=== PATIENT | male | born 1965 | race Caucasian/White ===

== ENCOUNTER → 2019-04-06 09:58 | Outpatient (CLI) | payer OTHER, SELFPAY ==
[2019-04-06 11:36] LABS: Alanine Aminotransferase 26 IU/L (<50); Albumin 4.5 g/dL (3.5-5.0); Albumin Globulin Ratio 1.8 (1.0-2.8); Alkaline Phosphatase 51 U/L (38-126); Aspartate Aminotransferase 31 IU/L (17-59); BUN Creatinine Ratio 21.1 (6-22); Bilirubin Total 0.9 mg/dL (0.2-1.3); Blood Urea Nitrogen 19 mg/dL (9-20); Calcium 9.5 mg/dL (8.4-10.2); Carbon Dioxide 30 mmol/L (22-32); Chloride 105 mmol/L (98-107); Cholesterol 151 mg/dL (140-199); Estimated Glomerular Filt Rate > 60.0 mL/min (>60); Globulin 2.5 g/dL (1.7-4.1); Glucose 96 mg/dL (70-100); HDL Cholesterol 27 mg/dL (40-60); HEMOLYSIS < 15 (0-50); LDL Cholesterol Calculated 96 mg/dL (<100); Potassium 4.4 mmol/L (3.4-5.1); Sodium 142 mmol/L (137-145); Triglycerides 142 mg/dL (35-150)
[2019-04-06 12:05] LABS: Prostate Specific Antigen Scrn 3.24 ng/mL (0.1-4.0)
== END ==
PROVIDERS: PCP Family Medicine; Visit Provider Family Medicine
DX: Z76.89 Persons encountering health services in other specified circumstances (principal)
CPT/HCPCS: 36415; 80053; 80061; 83036; G0103

== ENCOUNTER → 2019-06-08 06:48 | Outpatient (CLI) | payer OTHER, SELFPAY ==
--- NOTE | 2019-06-08 06:49 | DI.ECHO.S_ITS ---
[place] +---------+ [facility] +---------+ : : [address] : : : : [id number] : : : : Phone: [phone]+ Echocardiogram Report + + :Name: AWAIS LEE Study Date: 06/08/2019 Height: 74 in : :[facility] Exam Location: [facility] Weight: 212 lb : : Gender: Male BSA: 2.2 m2 : :: 1965 Age: 53 yrs BP: 118/80 mmHg: :Reason For Study: Mitral Valve- Prolapse/ JIMENES : : Performed By: Page : :Referring: ISMAEL CORNELL : + + Interpretation Summary The left ventricle is normal in size, wall thickness, and systolic function without any focal wall motion abnormalities with the ejection fraction visually estimated to be 55-60%. Diastolic parameters suggest probable normal left ventricular diastolic function and normal filling pressures. The right ventricle is borderline dilated but systolic function is normal. Pulmonary artery pressures cannot be estimated because of the lack of a measurable TR jet velocity but the IVC suggests a CVP of around 3 mmHg. The left atrium is severely dilated and the right atrium is moderately dilated. There is mild aortic valve sclerosis with mild aortic regurgitation but no aortic valve stenosis. There is no other significant valvular heart disease. Specifically, there is no evidence of mitral valve prolapse. Procedure: A two-dimensional transthoracic echocardiogram with color flow and Doppler was performed. The study quality was technically adequate. There is no prior echocardiogram noted for this patient. The patient was in normal sinus rhythm during the exam. Left Ventricle: The left ventricle is normal in size, wall thickness, and systolic function without any focal wall motion abnormalities. The ejection fraction is estimated to be 55-60%. Diastolic parameters suggest probable normal left ventricular diastolic function and normal filling pressures. Right Ventricle: The right ventricle is borderline dilated. The right ventricular systolic function is normal. Atria: The left atrium is severely dilated. The right atrium is moderately dilated. There is no Doppler evidence for an interatrial shunt. Mitral Valve: The mitral valve is normal in structure and function. There is no evidence of mitral valve prolapse. There is trace mitral regurgitation. Aortic Valve: The aortic valve is trileaflet. There is mild aortic valve sclerosis. The aortic valve opens well. There is no aortic valve stenosis. There is mild aortic regurgitation. Tricuspid Valve: The tricuspid valve is normal in structure and function. There is a trace or physiologic amount of tricuspid regurgitation. Pulmonary artery pressures cannot be estimated because of the lack of a measurable TR jet velocity but the IVC suggests a CVP of around 3 mmHg. Pulmonic Valve: The pulmonic valve is not well visualized. There is no other significant valvular heart disease. Great Vessels: The aortic root is normal size. The ascending aorta could not be visualized. The pulmonary is not well visualized. The IVC is of normal diameter and collapses greater than 50% with a sniff. This suggests a low right atrial pressure of 3 mm Hg. Pericardium/ Pleura There is no pericardial effusion. There is no pleural effusion. MMode/2D Measurements & Calculations LVIDd: 4.8 cm LVOT diam: 2.4 cm LVIDs: 3.9 cm Ao root diam: 3.3 cm FS: 19.9 % IVSd: 0.78 cm LVPWd: 0.82 cm LV harrison. diameter/BSA (cm/m^2): 2.2 LV sys. diameter/BSA (cm/m^2): 1.7 LA A2 area: 27.4 cm2 RA long axis: 5.6 cm LA A4 area: 26.8 cm2 RA area: 24.6 cm2 LA length (vol): 5.9 cm RA vol: 91.8 ml LA vol: 105.9 ml RA : 41.2 ml/m2 LA vol index: 47.5 ml/m2 IVC diam: 2.0 cm RVD1 (basal): 5.2 cm RVD2 (mid): 4.4 cm TAPSE: 2.6 cm Doppler Measurements & Calculations Ao V2 max: 127.5 cm/sec LVOT Max Daniel: 80.5 cm/sec Ao V2 mean: 95.2 cm/sec LV V1 max P.6 mmHg Ao max P.5 mmHg LV V1 VTI: 18.4 cm Ao mean P.9 mmHg ALVERTO(I,D): 2.9 cm2 Ao V2 VTI: 28.0 cm ALVERTO(V,D): 2.8 cm2 sev ratio: 0.66 ALVERTO indexed to BSA (cm^2/m^2): 1.3 AI P1/2t: 660.8 msec AI dec slope: 179.1 cm/sec2 MV E max daniel: 54.3 cm/sec PA V2 max: 80.0 cm/sec MV A max daniel: 56.2 cm/sec PA V2 mean: 59.6 cm/sec MV E/A: 0.97 PA mean P.5 mmHg Med Peak E' Daniel: 10.0 cm/sec PA Accel Time: 0.14 sec E/E' med: 5.4 Lat Peak E' Daniel: 14.4 cm/sec E/E' lat: 3.8 E/e' average: 4.6 MV dec time: 0.23 sec MV P1/2t: 71.2 msec MV P1/2t max daniel: 55.8 cm/sec SV(LVOT): 80.2 ml MVA(P1/2t): 3.1 cm2 Reading Physician:JAIRO
== END ==
PROVIDERS: PCP Family Medicine; Referring Provider Family Medicine; Visit Provider Family Medicine
DX: I35.1 Nonrheumatic aortic (valve) insufficiency (principal); R06.09 Other forms of dyspnea
CPT/HCPCS: 93306

== ENCOUNTER → 2019-08-13 16:34 | Outpatient (CLI) | payer OTHER, SELFPAY ==
[2019-08-14 17:39] LABS: SARS CoV19 IgG Negative (Negative)
== END ==
PROVIDERS: PCP Family Medicine; Referring Provider Registered Nurse; Visit Provider Registered Nurse
DX: Z11.9 Encounter for screening for infectious and parasitic diseases, unspecified (principal)
CPT/HCPCS: 36415; 86769

== ENCOUNTER → 2019-08-15 13:00 | Outpatient (CLI) | payer OTHER, SELFPAY ==
--- NOTE | 2019-08-15 13:02 | DI.RAD.S_ITS ---
PROCEDURE: XR CHEST 2V INDICATIONS: persistent cough TECHNIQUE: 2 views of the chest were acquired. COMPARISON: None. FINDINGS: Surgical changes and devices: None. Lungs and pleura: Lungs are clear. No pleural effusions or pneumothorax. Mediastinum: Mediastinal contours are normal. Heart size is normal. Bones and chest wall: No suspicious bony abnormalities. Soft tissues appear unremarkable. IMPRESSION: Normal for age, source of current cough symptoms is not seen. Dictated by: Darinel Pack M.D. on 08/15/2019 at 14:16 Approved by: Darinel Pack M.D. on 08/15/2019 at 14:16
== END ==
PROVIDERS: PCP Family Medicine; Referring Provider Family Medicine; Visit Provider Family Medicine
DX: R05 Cough (principal)
CPT/HCPCS: 71046

== ENCOUNTER → 2020-05-02 09:11 | Outpatient (CLI) | payer OTHER, SELFPAY ==
[2020-05-03 06:36] LABS: HSV Type 1 AB, IgG <0.91 index (0.00-0.90)
== END ==
PROVIDERS: PCP Family Medicine; Referring Provider Family Medicine; Visit Provider Family Medicine
DX: B00.9 Herpesviral infection, unspecified (principal)
CPT/HCPCS: 36415; 86695; 86696

== ENCOUNTER → 2022-10-21 06:56 | Outpatient (CLI) | payer OTHER, SELFPAY ==
[2022-10-21 07:59] LABS: Basophils Absolute Auto 0 /uL (0-100); Basophils Percent Auto 0.4 % (0-2); Eosinophils Absolute Auto 200 /uL (0-450); Eosinophils Percent Auto 2.9 % (2-4); Hematocrit 39.1 % (41-53); Hemoglobin 12.5 g/dL (13.5-17.5); Lymphocytes Absolute Auto 3300 /uL (1100-4500); Lymphocytes Percent Auto 48.6 % (25-40); Mean Corpuscular HGB Conc 31.9 % (30-36); Mean Corpuscular Hemoglobin 18.8 PG (26-34); Mean Corpuscular Volume 58.9 fL (80-100); Monocytes Absolute Auto 400 /uL (0-900); Monocytes Percent Auto 5.8 % (3-14); Neutrophils Absolute Auto 2900 /uL (1500-7000); Neutrophils Percent Auto 42.3 % (50-75); Platelet Count 107 X10^3/uL (150-400); Red Blood Cell Count 6.64 X10^6/uL (4.5-5.9); Red Cell Distribution Width 17.1 % (11.6-14.8); White Blood Cell Count 6.9 X10^3/uL (4.5-11.0)
[2022-10-21 08:13] LABS: Add Manual Diff / Slide Review SLIDE REVIEW
[2022-10-21 08:28] LABS: Alanine Aminotransferase 40 IU/L (<50); Albumin 4.1 g/dL (3.5-5.0); Albumin Globulin Ratio 1.7 (1.0-2.8); Alkaline Phosphatase 48 U/L (38-126); Aspartate Aminotransferase 32 IU/L (17-59); BUN Creatinine Ratio 19.6 (6-22); Bilirubin Total 1.1 mg/dL (0.2-1.3); Blood Urea Nitrogen 18 mg/dL (9-20); Calcium 8.8 mg/dL (8.4-10.2); Carbon Dioxide 30 mmol/L (22-32); Chloride 104 mmol/L (98-107); Cholesterol 149 mg/dL (140-199); Estimated Glomerular Filt Rate > 60 mL/min (>60); Globulin 2.4 g/dL (1.7-4.1); Glucose 87 mg/dL (70-100); HDL Cholesterol 27 mg/dL (40-60); HEMOLYSIS < 15 (0-50); LDL Cholesterol Calculated 86 mg/dL (<100); Potassium 4.5 mmol/L (3.4-5.1); Sodium 139 mmol/L (137-145); Total Protein 6.5 g/dL (6.3-8.2); Triglycerides 181 mg/dL (35-150)
[2022-10-21 08:32] LABS: Microcytosis 3+; Target Cells 1+; Tear Drop Cells 1+
[2022-10-21 08:33] LABS: Anisocytosis 2+; Ovalocytes 1+
[2022-10-21 08:57] LABS: Prostate Specific Antigen 4.06 ng/mL (0.10-4.00)
== END ==
PROVIDERS: PCP Family Medicine; Referring Provider Family Medicine; Visit Provider Family Medicine
DX: Z00.00 Encounter for general adult medical examination without abnormal findings (principal); N40.0 Benign prostatic hyperplasia without lower urinary tract symptoms; Z87.898 Personal history of other specified conditions
CPT/HCPCS: 36415; 80053; 80061; 84153; 85025

== ENCOUNTER 2024-01-19 13:42 | Day surgery (SDC) | payer OTHER, SELFPAY ==
[2024-01-19 14:32] VITALS: BP 140/81; PULSE 69; RESP 16; TEMP 36.2; O2SAT 96
--- NOTE | 2024-01-19 14:43 | PM.HP.1 ---
History of Present Illness History of Present Illness Date Patient Seen: 01/19/24 Time Patient Seen: 14:43 Chief complaint: Colonoscopy Narrative: José Miguel is a 58-year-old man who is here for a colonoscopy. He had a colonoscopy in 2013 and he believes polyps were removed but he was told he should have 10 year interval until his next colonoscopy [facility] Medical History Acne (~1979) Asthma Basal cell carcinoma Cerumen impaction Chicken pox (~1964) Eczema (~1999) Family history of prostate cancer Fracture (~1982) Hearing loss (~2006) History of colon polyps History of elevated PSA (~2014) Inguinal hernia of right side with obstruction and without gangrene Mitral valve prolapse (~03/28/99) Mitral valve prolapse determined by imaging (~2008) Rash Skin cancer (~2009) Thalassemia Thrombocytopenia Urinary hesitancy Vision disorder Well adult exam Surgical History Anesthesia History of hernia repair (~1996) S/P Mohs surgery for basal cell carcinoma Family History Father Prostate disease Mother Mental health problem Grandfather Cancer Social History Smoking Status: Never smoker second hand exposure: No alcohol intake: current substance use type: does not use Meds Home Medications and Allergies Home Medications Medication Instructions Recorded Confirmed Type tamsulosin 0.4 mg capsule 0.4 mg PO BEDTIME #90 caps 01/03/24 Rx Allergies Allergy/AdvReac Type Severity Reaction Status Date / Time grass pollen Allergy Mild seasonal Verified 01/19/24 14:06 No Known Allergies Allergy Uncoded 10/19/22 08:26 Exam Vital Signs (past 8 hours): - 01/19/24 14:32 Temperature 97.1 F L Pulse Rate 69 Respiratory Rate 16 Blood Pressure 140/81 Pulse Oximetry 96 Oxygen Delivery Method Room Air Oxygen Delivery Method Room Air Const General: healthy appearing Assessment & Plan Assessment and plan (1) Colon cancer screening: Status: Acute Plan Colonoscopy Time-Based Coding :: [TOTAL MINUTES] spent with patient and on the chart (including review of chart, obtaining history, exam, reviewing outside data, placing orders, documenting exam and treatment plan, and counseling patient) on [DATE].
[2024-01-19 15:48] VITALS: BP 112/62; PULSE 64; RESP 16; TEMP 37.2; O2SAT 95
--- NOTE | 2024-01-19 15:48 | PM.OP.COLON ---
Operative Date/Time/Diagnoses Date of procedure: 01/19/24 Time of procedure: 15:48 Pre-op diagnosis: Colon cancer screening Post-op diagnosis: same Procedure & Clinicians Study performed: Colonoscopy Same procedure as scheduled: Yes Surgeon: Alex Carrero Procedure Notes Procedure in detail: Surgeon: Alex Carrero MD Anesthesia: Lynette Hampton CRNA Procedure: The patient was brought to the endoscopy suite, placed in left lateral decubitus position. The patient was connected to monitoring devices. A time-out was performed. Sedation was administered. Once the patient was adequately sedated, a digital rectal exam was performed and was normal. The scope was then inserted and advanced to the cecum where the appendiceal orifice was identified and photographed. The scope was then slowly withdrawn over greater than 6 minutes. The mucosa was thoroughly inspected. No abnormalities were identified. The scope was retroflexed in the rectum. The scope was straightened and removed. The patient was awakened and brought to recovery. Scope withdrawal time: 8 minutes Sedation time: 15 minutes EBL: 0 Findings: Normal colon Post-procedure Recommendations: Colonoscopy in 10 years Disposition: PACU
[2024-01-19 15:53] VITALS: BP 118/64; PULSE 62; RESP 14; O2SAT 95
[2024-01-19 15:59] VITALS: BP 131/60; PULSE 68; RESP 14; TEMP 36.6; O2SAT 97
[2024-01-19 16:05] VITALS: BP 125/73; PULSE 69; RESP 14; O2SAT 99
== END 2024-01-19 16:21 | disposition home or self-care (01) ==
PROVIDERS: PCP Family Medicine; Referring Provider Surgery; Visit Provider Surgery
PROC: 0DJD8ZZ Inspection of Lower Intestinal Tract, Via Natural or Artificial Opening Endoscopic (ICD-10-PCS; CPT 45378; principal; 2024-01-19 14:45)
DX: Z12.11 Encounter for screening for malignant neoplasm of colon (principal)
CPT/HCPCS: 45378; J2405; J2704

== ENCOUNTER → 2024-03-15 07:52 | Outpatient (CLI) | payer OTHER, SELFPAY ==
[2024-03-15 08:13] LABS: Add Manual Diff / Slide Review NO; Basophils Absolute Auto 0 /uL (0-100); Basophils Percent Auto 0.4 % (0-2); Eosinophils Absolute Auto 300 /uL (0-450); Hematocrit 42.1 % (41-53); Hemoglobin 13.3 g/dL (13.5-17.5); Lymphocytes Absolute Auto 3600 /uL (1100-4500); Mean Corpuscular HGB Conc 31.5 % (30-36); Mean Corpuscular Hemoglobin 18.7 PG (26-34); Mean Corpuscular Volume 59.3 fL (80-100); Monocytes Absolute Auto 400 /uL (0-900); Monocytes Percent Auto 5.5 % (3-14); Neutrophils Absolute Auto 3300 /uL (1500-7000); Neutrophils Percent Auto 43.1 % (50-75); Platelet Count 112 X10^3/uL (150-400); Red Cell Distribution Width 17.6 % (11.6-14.8); White Blood Cell Count 7.6 X10^3/uL (4.5-11.0)
[2024-03-15 08:14] LABS: Red Blood Cell Count 7.11 X10^6/uL (4.5-5.9)
[2024-03-15 08:24] LABS: Anisocytosis 1+; Microcytosis 3+
[2024-03-15 09:05] LABS: Alanine Aminotransferase 38 IU/L (<50); Albumin 4.3 g/dL (3.5-5.0); Alkaline Phosphatase 55 U/L (38-126); Aspartate Aminotransferase 34 IU/L (17-59); BUN Creatinine Ratio 20.9 (6-22); Bilirubin Total 1.1 mg/dL (0.2-1.3); Blood Urea Nitrogen 19 mg/dL (9-20); Calcium 9.1 mg/dL (8.4-10.2); Carbon Dioxide 24 mmol/L (22-32); Chloride 109 mmol/L (98-107); Cholesterol 157 mg/dL (140-199); Estimated Glomerular Filt Rate > 60 mL/min (>60); Globulin 2.2 g/dL (1.7-4.1); Glucose 103 mg/dL (80-110); HDL Cholesterol 29 mg/dL (40-60); HEMOLYSIS < 15 (0-50); LDL Cholesterol Calculated 88 mg/dL (<100); Lipase 208 U/L (23-300); Potassium 4.3 mmol/L (3.4-5.1); Sodium 140 mmol/L (137-145); Total Protein 6.5 g/dL (6.3-8.2); Triglycerides 200 mg/dL (35-150)
== END ==
PROVIDERS: PCP Family Medicine; Referring Provider Family Medicine; Visit Provider Family Medicine
DX: Z00.00 Encounter for general adult medical examination without abnormal findings (principal); R10.13 Epigastric pain; Z80.0 Family history of malignant neoplasm of digestive organs
CPT/HCPCS: 36415; 80053; 80061; 83690; 84153; 84154; 85025

== ENCOUNTER → 2024-06-27 16:38 | Outpatient (CLI) | payer OTHER, SELFPAY ==
[2024-06-29 13:10] LABS: Mumps Virus IgG Antibody >300.0 AU/mL (Immune >10.9)
== END ==
PROVIDERS: PCP Family Medicine; Referring Provider Family Medicine; Visit Provider Family Medicine
DX: Z01.84 Encounter for antibody response examination (principal)
CPT/HCPCS: 36415; 86735; 86762; 86765

== ENCOUNTER → 2024-07-25 16:24 | Outpatient (CLI) | payer OTHER, SELFPAY ==
--- NOTE | 2024-07-25 16:25 | DI.RAD.S_ITS ---
PROCEDURE: XR CHEST 2V INDICATIONS: cough w/ wheezing/crackles b/l TECHNIQUE: 2 views of the chest were acquired. COMPARISON: [facility], CR, XR CHEST 2V, 08/15/2019, 13:08. FINDINGS: Surgical changes and devices: None. Lungs and pleura: Mild bronchial wall thickening is seen. No focal infiltrate. No pleural effusions or pneumothorax. Mediastinum: Mediastinal contours are normal. Heart size is normal. Bones and chest wall: No suspicious bony abnormalities. Soft tissues appear unremarkable. IMPRESSION: Suggestion of mild reactive airway disease such as bronchitis or viral illness. No definite focal infiltrate. No pleural effusion or pneumothorax. Dictated by: Ap Batista M.D. on 07/25/2024 at 17:10 Approved by: Ap Batista M.D. on 07/25/2024 at 17:11
== END ==
PROVIDERS: PCP Family Medicine; Referring Provider Physician Assistant; Visit Provider Physician Assistant
DX: J06.9 Acute upper respiratory infection, unspecified (principal)
CPT/HCPCS: 71046